=== PATIENT | female | born 1965 | race African-American/Black ===

== ENCOUNTER 2016-07-10 20:21 | Emergency (ER) | payer OTHER ==
[~2016-07-10 20:21] MED LIST: FLUT9.9S NS; HYDR-971 PO; METO50TA2 PO; VERA240C2 PO
--- NOTE | 2016-07-10 20:55 | ED.ADGEN ---
Past Medical History Past Medical History: GERD, Hypertension Past Surgical History: Tubal ligation, Other Additional Past Surgical Histo: (R) SHOULDER ROTA CUFF Alcohol Use: Occasionally Drug Use: None Adult General Chief Complaint Chief Complaint: ACCIDENTAL INGESTION HPI HPI Patient is a 50 year old woman, history of hypertension, GERD, who presents to the emergency department with a complaint of throat pain and concern for occult exposure. Patient states that she keeps a small bag of baking soda in the cabinet next to her and send sticks. She states that she began using the baking soda, small spoonful mixed with water, as she was experiencing a small amount of GI upset. She states she is not extrinsics RSI currently, she states however after she drank the baking soda she been expressing a burning sensation in her throat. She denies any pain previously. Denies any difficulty with swallowing or breathing, was concerned that "some of the chemicals from the incense may have gotten into the baking soda". As stated, the backs of both heels, and patient has been using baking soda in this [employer] incense for some time without any complications. She denies any preceding symptoms, any fevers or chills, any rhinorrhea, any other GI or complaints. Review of Systems Review of Systems Constitutional: Denies fever or chills. [] Eyes: Denies change in visual acuity. [] HENT: Denies nasal congestion, complaining of sore throat. Respiratory: Denies cough or shortness of breath. [] Cardiovascular: Denies chest pain or edema. [] GI: Denies abdominal pain, nausea, vomiting, bloody stools or diarrhea. [] : Denies dysuria. [] Musculoskeletal: Denies back pain or joint pain. [] Integument: Denies rash. [] Neurologic: Denies headache, focal weakness or sensory changes. [] Endocrine: Denies polyuria or polydipsia. [] Lymphatic: Denies swollen glands. [] Psychiatric: Denies depression or anxiety. [] Current Medications Current Medications Current Medications Medications (Trade) Dose Ordered Sig/Amairani Start Time Stop Time Status Last Admin Dose Admin Multi-Ingredient Mouthwash/Gargle (Gi Cocktail Single Dose) 15 ml 1X ONCE 07/10/16 21:00 07/10/16 21:01 DC 07/10/16 21:08 15 ML Ondansetron HCl (Zofran Odt) 4 mg 1X ONCE 07/10/16 21:15 07/10/16 21:18 DC 07/10/16 21:16 4 MG Allergies Allergies Allergies Coded Allergies Type Severity Reaction Last Updated Verified codeine Adverse Reaction Intermediate Nausea 10/14/13 Yes Physical Exam Physical Exam Constitutional: Well developed, well nourished, no acute distress, non-toxic appearance. [] HENT: Normocephalic, atraumatic, bilateral external ears normal, oropharynx mildly injected, no swelling of the tonsils or uvula, no tongue involvement, no oral exudates, nose normal. [] Eyes: PERRLA, EOMI, conjunctiva normal, no discharge. [] Neck: Normal range of motion, no tenderness, supple, no stridor. [] Cardiovascular:Heart rate regular rhythm, no murmur , S1, S2, rubs or gallops. [ ] Lungs & Thorax: Bilateral breath sounds clear to auscultation , no wheezing, rhonchi, rales. [] Abdomen: Bowel sounds normal, soft, no tenderness, no masses, no pulsatile masses. [] Skin: Warm, dry, no erythema, no rash. [] Back: No tenderness, no CVA tenderness. [] Extremities: No tenderness, no cyanosis, no clubbing, ROM intact, no edema. [] Neurologic: Alert and oriented X 3, normal motor function, normal sensory function, no focal deficits noted. [] Psychologic: Affect normal, judgement normal, mood normal. [] Current Patient Data Vital Signs Vital Signs Date Time Temp Pulse Resp B/P Pulse Ox O2 Delivery O2 Flow Rate FiO2 07/10/16 20:30 98.4 70 16 160/89 100 Room Air 98.4 EKG EKG Not indicated. [] Radiology/Procedures Radiology/Procedures Not indicated. [] Course & Med Decision Making Course & Med Decision Making Pertinent Labs and Imaging studies reviewed. (See chart for details) Patient with evidence of injection and irritation of the posterior pharynx, although patient denies feeling any symptoms before she drank baking soda, I believe that she may have had mild irritation in this area which was irritated when she ingested the baking soda and water mixture. No evidence of lesions, or correa, tongue and mucous membranes are normal, no swelling, patient received a strep swab which was negative. Per patient's report, she did not ingest a dangerous amount of baking soda, is denying any GI symptoms at this time, has no stridor, or evidence of other concerning finding on examination or history. Patient given a GI cocktail which she gargle, with improvement of her throat symptoms. On reevaluation, more than hour out from onset of symptoms, she states she is feeling much better, and as stated has no evidence of airway compromise or other concerning findings. Discussed with patient use of over-the- counter medications for her symptoms, concerning symptoms that would prompt return to the emergency department for additional evaluation. Patient voiced understanding and agreement with plan as stated, discharged home with family in stable condition. Dragon Disclaimer Dragon Disclaimer This electronic medical record was generated, in whole or in part, using a voice recognition dictation system. Departure Impression: Primary Impression: Throat pain in adult Disposition: 01 HOME, SELF-CARE Condition: IMPROVED OLGA PORTILLO DO Jul 10, 2016 20:55
[2016-07-10] MEDS ORDERED: LIDO:MAALOX:DONNATAL 1:1:1 15 ML SINGLE DOSE SWSW ONE (21:00)
[2016-07-10] MEDS ORDERED: ONDANSETRON ODT 4 MG TAB.RAPDIS PO ONE (21:15)
[2016-07-10 21:50] VITALS: BP 145/67
[2016-07-11 09:12] LABS: NEGATIVE OBC STREP NEG; POSITIVE OBC STREP POS
== END 2016-07-10 22:05 | disposition home or self-care (01) ==
LOC: ER 20:21
DX: R07.0 Pain in throat (principal); I10 Essential (primary) hypertension; K21.9 Gastro-esophageal reflux disease without esophagitis; Z88.5 Allergy status to narcotic agent; Z98.51 Tubal ligation status
CPT/HCPCS: 87070; 87880; 99284; Q0162

== ENCOUNTER → 2016-07-20 | Outpatient (CLI) | payer OTHER ==
[2016-07-10 21:50] VITALS: BP 145/67
[2016-07-20 11:03] LABS: ALBUMIN/GLOBULIN RATIO 0.9 (1.0-1.7); CALCIUM 9.4 mg/dL (8.5-10.1); CREATININE 0.8 mg/dL (0.6-1.0); GFR 91.5; TOTAL BILIRUBIN 0.5 mg/dL (0.2-1.0); TOTAL PROTEIN 8.5 g/dL (6.4-8.2)
[2016-07-20 11:04] LABS: CHOLESTEROL/HDL RATIO 2.8; POTASSIUM 4.1 mmol/L (3.5-5.1)
== END | disposition home or self-care (01) ==
LOC: LAB 10:15
PROVIDERS: ATTEND Family Medicine
DX: I10 Essential (primary) hypertension (principal)
CPT/HCPCS: 36415; 80053; 80061

== ENCOUNTER → 2016-11-15 | Outpatient (CLI) | payer OTHER ==
--- NOTE | 2016-11-16 16:50 | RAD ---
DATE: 11/15/2016 EXAM: MAMMO JESUS SCREENING BILATERAL HISTORY: Screening mammogram COMPARISON: 06/30/2015 screening mammogram. The breast parenchyma is heterogeneously dense, which could reduce sensitivity of mammography. Breast parenchyma level C. FINDINGS: Bilateral digital 2D and 3D tomosynthesis CC and MLO views. There is a 4 mm nodule in the lateral left breast which is not definitely seen on the MLO view 4 cm posterior to the nipple. No suspicious mass, calcification or architectural distortion in the right breast. IMPRESSION: 4 mm nodule in the lateral left breast only seen on the CC view. BI-RADS 0, needs additional imaging evaluation. BI-RADS CATEGORY: 0 INCOMPLETE: NEEDS ADDITIONAL IMAGING EVALUATION AND/OR PRIOR MAMMOGRAMS FOR COMPARISON. RECOMMENDED FOLLOW-UP: ADD ADDITIONAL IMAGING Mammography is a sensitive method for finding small breast cancers, but it does not detect them all and is not a substitute for careful clinical examination. A negative mammogram does not negate a clinically suspicious finding and should not result in delay in biopsying a clinically suspicious abnormality. "Our facility is accredited by the [employer] Mammography Program."
== END | disposition home or self-care (01) ==
LOC: KCIC MAMMO 14:42
PROVIDERS: ATTEND Family Medicine
DX: Z12.31 Encounter for screening mammogram for malignant neoplasm of breast (principal)
CPT/HCPCS: 77063; G0202; 77067

== ENCOUNTER → 2016-11-17 | Outpatient (CLI) | payer OTHER ==
--- NOTE | 2016-11-17 16:01 | RAD ---
DATE: 11/17/2016 EXAM: DIGITAL DIAGNOSTIC LT, BREAST LEFT HISTORY: Suspicious screening study COMPARISON: 11/15/2016 The breast parenchyma is heterogeneously dense, which could reduce the sensitivity of mammography. Breast parenchyma level C. FINDINGS: Additional spot compression and straight mediolateral views of the left breast were obtained and correlated with the screening images. The CC spot compression view confirms the presence of a 4 mm nodule in the anterolateral aspect left breast. It is not clearly seen on the current oblique or straight mediolateral views. It is best demonstrated on CC tomographic image 27 of the screening study. The tomograms suggest that it lies at the 3-4:00 location. It is triangular shaped with predominantly smooth margins. Left breast ultrasound, 11/17/2016: A targeted ultrasound exam of the left breast was obtained from the 12:00 to 4:00 locations. Heterogeneous fibroglandular shadows are present. No cystic or solid breast mass is seen. IMPRESSION: Small left lateral breast nodule for which no sonographic correlate could be found. Breast MRI should be considered for further evaluation. Close mammographic follow-up would be a reasonable alternative. BI-RADS CATEGORY: 0 INCOMPLETE: NEEDS ADDITIONAL IMAGING EVALUATION AND/OR PRIOR MAMMOGRAMS FOR COMPARISON. RECOMMENDED FOLLOW-UP: ADD ADDITIONAL IMAGING PQRS compliance statement: Patient information was entered into a reminder system with a target due date for the next mammogram. Mammography is a sensitive method for finding small breast cancers, but it does not detect them all and is not a substitute for careful clinical examination. A negative mammogram does not negate a clinically suspicious finding and should not result in delay in biopsying a clinically suspicious abnormality. "Our facility is accredited by the [employer] Mammography Program."
== END | disposition home or self-care (01) ==
LOC: KCIC MAMMO 14:30
PROVIDERS: ATTEND Family Medicine
DX: N63 Unspecified lump in breast (principal)
CPT/HCPCS: 76641; G0206; 77065

== ENCOUNTER → 2017-05-04 | Outpatient (CLI) | payer OTHER ==
[2017-05-04 09:26] LABS: ALBUMIN 4.1 g/dL (3.4-5.0); ALBUMIN/GLOBULIN RATIO 0.9 (1.0-1.7); ALK PHOS 83 U/L (46-116); ALT (SGPT) 33 U/L (14-59); ANION GAP 10 (6-14); AST (SGOT) 22 U/L (15-37); BLOOD UREA NITROGEN 16 mg/dL (7-20); BUN/CREATININE RATIO 20 (6-20); CALCIUM 8.8 mg/dL (8.5-10.1); CARBON DIOXIDE 29 mmol/L (21-32); CHLORIDE 102 mmol/L (98-107); CHOLESTEROL 182 mg/dL (0-200); CREATININE 0.8 mg/dL (0.6-1.0); GFR 91.1; GLUCOSE 92 mg/dL (70-99); HDLC 63 mg/dL (40-60); LDLC 99 mg/dL (0-100); NON-HDL CHOLESTEROL 119 mg/dL (0-129); POTASSIUM 4.1 mmol/L (3.5-5.1); SODIUM 141 mmol/L (136-145); TOTAL BILIRUBIN 0.4 mg/dL (0.2-1.0); TOTAL PROTEIN 8.6 g/dL (6.4-8.2); TRIGLYCERIDES 99 mg/dL (0-150); VLDLC 20 mg/dL (0-40)
[2017-05-04 09:28] LABS: CHOLESTEROL/HDL RATIO 2.9
== END | disposition home or self-care (01) ==
LOC: LAB 08:49
DX: I10 Essential (primary) hypertension (principal); Z78.0 Asymptomatic menopausal state
CPT/HCPCS: 36415; 80053; 80061; 82306

== ENCOUNTER → 2017-06-29 | Outpatient (CLI) | payer OTHER | END | disposition home or self-care (01) | LOC: KCIC MAMMO 13:46 | DX: N63.20 Unspecified lump in the left breast, unspecified quadrant (principal) | CPT/HCPCS: 77065; G0279 ==

== ENCOUNTER → 2017-08-08 | Outpatient (CLI) | payer OTHER | END | disposition home or self-care (01) | LOC: KCIC MRI 15:39 | DX: M94.212 Chondromalacia, left shoulder (principal); M12.812 Other specific arthropathies, not elsewhere classified, left shoulder; I10 Essential (primary) hypertension | CPT/HCPCS: 73221 ==

== ENCOUNTER 2017-12-29 14:37 | Emergency (ER) | payer OTHER ==
[~2017-12-29] VITALS: Ht 170.2 cm; Wt 96.6 kg
[~2017-12-29 14:37] MED LIST changes: -METO50TA2 PO; +METO50TA6 PO
[2017-12-29 14:43] VITALS: BP 154/70
[2017-12-29] MEDS ORDERED: ACETAMINOPHEN 500 MG TABLET PO ONE (15:00)
[2017-12-29] MEDS ORDERED: MUPI22OI2 TP (15:03)
--- NOTE | 2017-12-29 15:04 | PHYS DOC ---
Past Medical History Past Medical History: GERD, Hypertension Past Surgical History: Tubal ligation, Other Additional Past Surgical Histo: (R) SHOULDER ROTA CUFF Alcohol Use: Occasionally Drug Use: None Adult General Chief Complaint Chief Complaint: INSECT BITE HPI HPI Patient is a 52 year old female who presents with an infected mosquito bite that occurred a few days ago. The patient has been using peroxide and alcohol on the bite. She states that it is not healing. There is a small area of pus in the center of the bite. She states that she has also had some intermittent headaches as well. She denies changes in vision, gait changes, fever, nausea or vomiting. Review of Systems Review of Systems Constitutional: Denies fever or chills [] Eyes: Denies change in visual acuity, redness, or eye pain [] HENT: Denies nasal congestion or sore throat [] Respiratory: Denies cough or shortness of breath [] Cardiovascular: No additional information not addressed in HPI [] GI: Denies abdominal pain, nausea, vomiting, bloody stools or diarrhea [] : Denies dysuria or hematuria [] Musculoskeletal: Denies back pain or joint pain [] Integument: See history of present illness Neurologic: See history of present illness Endocrine: Denies polyuria or polydipsia [] All other systems were reviewed and found to be within normal limits, except as documented in this note. Current Medications Current Medications Current Medications Medications (Trade) Dose Ordered Sig/[facility] Start Time Stop Time Status Last Admin Dose Admin Acetaminophen (Tylenol) 1,000 mg 1X ONCE 12/29/17 15:00 12/29/17 15:01 Allergies Allergies Allergies Coded Allergies Type Severity Reaction Last Updated Verified codeine Adverse Reaction Intermediate Nausea 10/14/13 Yes Physical Exam Physical Exam Constitutional: Well developed, well nourished, no acute distress, non-toxic appearance. [] HENT: Normocephalic, atraumatic, bilateral external ears normal, oropharynx moist, no oral exudates, nose normal. [] Eyes: PERRLA, EOMI, conjunctiva normal, no discharge. [] Neck: Normal range of motion, no tenderness, supple, no stridor. [] Cardiovascular:Heart rate regular rhythm, no murmur [] Lungs & Thorax: Bilateral breath sounds clear to auscultation [] Abdomen: Bowel sounds normal, soft, no tenderness, no masses, no pulsatile masses. [] Skin: 0.5 cm papule with a purulent center, no induration or fluctuance noted Back: No tenderness, no CVA tenderness. [] Extremities: No tenderness, no cyanosis, no clubbing, ROM intact, no edema. [] Neurologic: Alert and oriented X 3, normal motor function, normal sensory function, no focal deficits noted, cranial nerves II through XII are grossly intact. [] Psychologic: Affect normal, judgement normal, mood normal. [] Current Patient Data Vital Signs Vital Signs Date Time Temp Pulse Resp B/P (MAP) Pulse Ox O2 Delivery O2 Flow Rate FiO2 12/29/17 14:39 97.9 60 18 154/70 (98) 97 Room Air 97.9 EKG EKG [] Radiology/Procedures Radiology/Procedures [] Course & Med Decision Making Course & Med Decision Making Pertinent Labs and Imaging studies reviewed. (See chart for details) []The patient was given a dose of Tylenol in the emergency department for her headache. Dragon Disclaimer Dragon Disclaimer This electronic medical record was generated, in whole or in part, using a voice recognition dictation system. Departure Departure Impression: Primary Impression: Skin infection Additional Impression: Headache Disposition: HOME, SELF-CARE Condition: STABLE Referrals: RANJIT BLOOM MD (PCP) Patient Instructions: General Headache Without Cause, Skin Infections Additional Instructions: Take the medication as prescribed. You may use ibuprofen or Tylenol for headache. Follow-up with your primary care provider in 3 days if not improving or return to the emergency department if worsening. Scripts Mupirocin (MUPIROCIN OINTMENT) 22 Gm Oint...g. 1 SHIV TP TID for WOUND CARE, #1 TUBE Prov: LYRIC NIELSEN APRN 12/29/17 Problem Qualifiers LYRIC NIELSEN APRN Dec 29, 2017 15:04
== END 2017-12-29 15:16 | disposition home or self-care (01) ==
LOC: ER 14:37
DX: L08.89 Other specified local infections of the skin and subcutaneous tissue (principal); S50.862A Insect bite (nonvenomous) of left forearm, initial encounter; I10 Essential (primary) hypertension; K21.9 Gastro-esophageal reflux disease without esophagitis; W57.XXXA Bitten or stung by nonvenomous insect and other nonvenomous arthropods, initial encounter; Y93.89 Activity, other specified; Y92.89 Other specified places as the place of occurrence of the external cause; Y99.8 Other external cause status
CPT/HCPCS: 99283

== ENCOUNTER → 2018-01-05 | Day surgery (SDC) | payer OTHER ==
[~2018-01-05] MED LIST changes: +ASPI-630 PO; +ESCITALOPRAM OXA5 M1 PO; +IV RINGERS,LACTATED 1000ML 1,000 ML IV SCH; +LIDOCAINE 2% PF 2ML VIAL. ONE; +MUPI22OI2 TP; +PROPOFOL 20 ML IV ONE
[2018-01-05 08:35] VITALS: BP 118/61
== END | disposition home or self-care (01) ==
LOC: ENDOS 06:50
PROVIDERS: ATTEND Internal Medicine Gastroenterology
DX: Z12.11 Encounter for screening for malignant neoplasm of colon (principal); K64.0 First degree hemorrhoids; Z88.5 Allergy status to narcotic agent; F41.9 Anxiety disorder, unspecified; M19.90 Unspecified osteoarthritis, unspecified site; K21.9 Gastro-esophageal reflux disease without esophagitis; I10 Essential (primary) hypertension; Z82.49 Family history of ischemic heart disease and other diseases of the circulatory system; Z72.89 Other problems related to lifestyle
CPT/HCPCS: 45378; J2001; J2704

== ENCOUNTER → 2018-01-15 | Outpatient (CLI) | payer OTHER ==
[2018-01-05 08:35] VITALS: BP 118/61
[~2018-01-15] MED LIST changes: -IV RINGERS,LACTATED 1000ML 1,000 ML IV SCH; -LIDOCAINE 2% PF 2ML VIAL. ONE; -PROPOFOL 20 ML IV ONE
--- NOTE | 2018-01-15 17:24 | KCIC ---
Bilateral digital screening mammograms with 3D Tomosynthesis: Reason for examination: Routine screening. Comparison is made to previous studies dated back to 06/30/2015. Bilateral mammograms in CC and oblique projections were obtained with 2-D imaging and 3-D tomosynthesis imaging on a Siemens Inspiration unit and reviewed on the workstation. Interpretation was made with the benefit of CAD. The skin and nipples show no abnormalities. No abnormal axillary lymph nodes are seen. The breast parenchyma is extremely dense. (Breast density: Category D.) There is a 5.3 mm circumscribed nodule present at approximately the 6:30 B position of the left breast on tomographic images. This may represent a cyst. Further evaluation with ultrasound is recommended. There are no other dominant masses, suspicious calcifications or architectural distortion evident. Impression: Small 5.3 mm circumscribed nodule possibly representing a cyst seen on tomographic images at approximately the 6:30 B position of the left breast. Recommend further evaluation with ultrasound. Your patient's mammogram demonstrates that she has dense breast tissue (breast density category C or D), which could hide abnormalities, and if she has other risk factors for breast cancer that have been identified, she might benefit from supplemental screening tests that may be suggested by you as her ordering physician. Dense breast tissue, in and of itself, is a relatively common condition. Therefore, this information is not provided to cause undue concern, but rather to raise your awareness and to promote discussion with your patient regarding the presence of other risk factors, in addition to dense breast tissue. Your patient's mammography results will be sent to her. BI-RAD Category 0: Incomplete. Needs additional imaging evaluation. "Our facility is accredited by the [employer] Mammography [employer]." This patient's information has been entered into a reminder system for the patient to be notified with the results of her examination and a target date for the next mammogram. Electronically signed by: Emily Shields MD (01/15/2018 5:20 PM) [id number]
== END | disposition home or self-care (01) ==
LOC: KCIC MAMMO 13:01
PROVIDERS: ATTEND Family Medicine
DX: R92.8 Other abnormal and inconclusive findings on diagnostic imaging of breast (principal); E55.9 Vitamin D deficiency, unspecified; K21.9 Gastro-esophageal reflux disease without esophagitis; Z82.49 Family history of ischemic heart disease and other diseases of the circulatory system
CPT/HCPCS: 77066; G0279; 77062

== ENCOUNTER → 2018-06-05 | Outpatient (CLI) | payer OTHER ==
[2018-01-05 08:35] VITALS: BP 118/61
[~2018-06-05] MED LIST changes: +HYDR-3164 PO; -HYDR-971 PO
[2018-06-05 11:32] LABS: CREATININE 0.7 mg/dL (0.6-1.0); GFR 105.9; POTASSIUM 4.1 mmol/L (3.5-5.1)
[2018-06-05 23:14] LABS: HEMOGLOBIN A1C 5.8 % (4.8-5.6)
== END | disposition home or self-care (01) ==
LOC: LAB 10:42
PROVIDERS: ATTEND Family Medicine
DX: R73.9 Hyperglycemia, unspecified (principal)
CPT/HCPCS: 36415; 80048; 83036

== ENCOUNTER 2018-06-13 12:38 | Emergency (ER) | payer OTHER ==
[~2018-06-13] VITALS: Ht 170.2 cm; Wt 96.6 kg
[2018-06-13 12:44] VITALS: BP 147/66
[2018-06-13] MEDS ORDERED: IBUPROFEN 200 MG TABLET. PO ONE (13:15)
--- NOTE | 2018-06-13 17:50 | PHYS DOC ---
Past Medical History Past Medical History: GERD, Hypertension Past Surgical History: Tubal ligation, Other Additional Past Surgical Histo: (R) SHOULDER ROTA CUFF Alcohol Use: Occasionally Drug Use: None Adult General Chief Complaint Chief Complaint: MECHANICAL FALL HPI HPI 52-year-old female presents to the emergency department today after she slipped and fell on ice and hit her head. She did not lose consciousness. She does report a headache and she took Tylenol helped some but did not completely alleviate the symptoms. She denies any nausea or vomiting. She was told by her work she needed to come in and get checked. She denies any lateralizing neurologic weakness. She was ambulatory right after her fall.[] Review of Systems Review of Systems Constitutional: Denies fever or chills [] Eyes: Denies change in visual acuity, redness, or eye pain [] HENT: Denies nasal congestion or sore throat [] Respiratory: Denies cough or shortness of breath [] Cardiovascular: No additional information not addressed in HPI [] GI: Denies abdominal pain, nausea, vomiting, bloody stools or diarrhea [] : Denies dysuria or hematuria [] Musculoskeletal: Denies back pain or joint pain [] Integument: Denies rash or skin lesions [] Neurologic: Per history of present illness[] Endocrine: Denies polyuria or polydipsia [] All other systems were reviewed and found to be within normal limits, except as documented in this note. Current Medications Current Medications Current Medications Medications (Trade) Dose Ordered Sig/Amairani Start Time Stop Time Status Last Admin Dose Admin Ibuprofen (Motrin) 600 mg 1X ONCE 06/13/18 13:15 06/13/18 13:16 DC Allergies Allergies Allergies Coded Allergies Type Severity Reaction Last Updated Verified codeine Adverse Reaction Intermediate Nausea 01/05/18 Yes Physical Exam Physical Exam Constitutional: Well developed, well nourished, mild distress, non-toxic appearance. [] HENT: Small tender area in the central occipital area there is no laceration no hematoma, atraumatic, bilateral external ears normal, oropharynx moist, no oral exudates, nose normal. [] Eyes: PERRLA, EOMI, conjunctiva normal, no discharge. [] Neck: Normal range of motion, no tenderness, supple, no stridor. [] Cardiovascular:Heart rate regular rhythm, no murmur [] Lungs & Thorax: Bilateral breath sounds clear to auscultation [] Abdomen: Bowel sounds normal, soft, no tenderness, no masses, no pulsatile masses. [] Skin: Warm, dry, no erythema, no rash. [] Back: No tenderness, no CVA tenderness. [] Extremities: No tenderness, no cyanosis, no clubbing, ROM intact, no edema. [] Neurologic: Alert and oriented X 3, normal motor function, normal sensory function, no focal deficits noted. [] Psychologic: Affect normal, judgement normal, mood normal. [] Current Patient Data Vital Signs Vital Signs Date Time Temp Pulse Resp B/P (MAP) Pulse Ox O2 Delivery O2 Flow Rate FiO2 06/13/18 12:44 98.4 67 18 147/66 (93) 97 Room Air 98.4 EKG EKG [] Radiology/Procedures Radiology/Procedures [] Course & Med Decision Making Course & Med Decision Making Pertinent Labs and Imaging studies reviewed. (See chart for details) [] Dragon Disclaimer Dragon Disclaimer This electronic medical record was generated, in whole or in part, using a voice recognition dictation system. Departure Departure Impression: Primary Impression: Head contusion Disposition: 01 HOME, SELF-CARE Condition: STABLE Patient Instructions: Head Injury, Adult Problem Qualifiers Primary Impression: Head contusion Encounter type: initial encounter Contusion of head detail: scalp Qualified Codes: S00.03XA - Contusion of scalp, initial encounter WEN CHEN DO Jun 13, 2018 17:50
== END 2018-06-13 13:17 | disposition home or self-care (01) ==
LOC: ER 12:38
DX: S00.03XA Contusion of scalp, initial encounter (principal); I10 Essential (primary) hypertension; K21.9 Gastro-esophageal reflux disease without esophagitis; Z88.5 Allergy status to narcotic agent; W00.2XXA Other fall from one level to another due to ice and snow, initial encounter; Y93.89 Activity, other specified; Y92.89 Other specified places as the place of occurrence of the external cause; Y99.8 Other external cause status
CPT/HCPCS: 99282

== ENCOUNTER → 2019-02-08 | Outpatient (CLI) | payer OTHER ==
--- NOTE | 2019-02-11 13:01 | KCIC ---
Bilateral digital screening mammograms with 3-D tomosynthesis: Reason for examination: Routine screening. Comparison is made to previous studies dated 01/15/2018 and 11/15/2016. Bilateral mammograms in CC and oblique projections were obtained with 2-D imaging and 3-D tomosynthesis imaging on a Siemens Inspiration unit and reviewed on the workstation. Interpretation was made with the benefit of CAD. The skin and nipples show no abnormalities. No abnormal axillary lymph nodes are seen. The breast parenchyma is extremely dense. (Breast density: Category D.) There are no dominant masses, suspicious calcifications or architectural distortion. Benign calcifications are present. Impression: No evidence of malignancy. Recommend routine screening. Your patient's mammogram demonstrates that she has dense breast tissue (breast density category C or D), which could hide abnormalities, and if she has other risk factors for breast cancer that have been identified, she might benefit from supplemental screening tests that may be suggested by you as her ordering physician. Dense breast tissue, in and of itself, is a relatively common condition. Therefore, this information is not provided to cause undue concern, but rather to raise your awareness and to promote discussion with your patient regarding the presence of other risk factors, in addition to dense breast tissue. Your patient's mammography results will be sent to her. BI-RAD Category 2: Benign. "Our facility is accredited by the [employer] Mammography Program." This patient's information has been entered into a reminder system for the patient to be notified with the results of her examination and a target date for the next mammogram. ANGEL
== END | disposition home or self-care (01) ==
LOC: KCIC MAMMO 12:30
PROVIDERS: ATTEND Family Medicine
DX: Z12.31 Encounter for screening mammogram for malignant neoplasm of breast (principal); N64.89 Other specified disorders of breast
CPT/HCPCS: 77063; 77067

== ENCOUNTER 2019-03-03 18:52 | Emergency (ER) | payer OTHER ==
[~2019-03-03] VITALS: Ht 167.6 cm; Wt 96.6 kg
--- NOTE | 2019-03-03 19:12 | PHYS DOC ---
Past Medical History Past Medical History: GERD, Hypertension Past Surgical History: Tubal ligation, Other Additional Past Surgical Histo: (R) SHOULDER ROTA CUFF Alcohol Use: Occasionally Drug Use: None Adult General Chief Complaint Chief Complaint: ABDOMINAL PAIN HPI HPI Patient is a 53 year old female presents with epigastric/right upper quadrant pain radiating to right shoulder blade. It is described as dull, aching and is intermittent lasting for minutes to hours at a time. It is worse after eating certain foods. Pain began this evening after eating a peanut butter sandwich. Patient taken Pepto-Bismol and Rolaids without relief. States states pain is more intense it isn't different location than her typical heartburn. No nausea vomiting, bloody stools or dark tarry stools. No other acute symptoms or complaints. No prior abdominal surgeries. [] Review of Systems Review of Systems Review of symptoms as per history of present illness. All other review symptoms are negative. All other systems were reviewed and found to be within normal limits, except as documented in this note. Current Medications Current Medications Current Medications Medications (Trade) Dose Ordered Sig/Amairani Start Time Stop Time Status Last Admin Dose Admin Famotidine (Pepcid Vial) 20 mg 1X ONCE 03/03/19 19:15 03/03/19 19:16 DC 03/03/19 19:52 20 MG Morphine Sulfate (Morphine Sulfate) 4 mg 1X ONCE 03/03/19 19:45 03/03/19 19:46 DC 03/03/19 19:53 4 MG Multi-Ingredient Mouthwash/Gargle (Gi Cocktail) 20 ml 1X ONCE 03/03/19 22:00 03/03/19 22:01 DC 03/03/19 22:04 20 ML Ondansetron HCl (Zofran) 4 mg 1X ONCE 03/03/19 19:45 03/03/19 19:46 DC 03/03/19 19:53 4 MG Allergies Allergies Allergies Coded Allergies Type Severity Reaction Last Updated Verified codeine Adverse Reaction Intermediate Nausea 01/05/18 Yes Physical Exam Physical Exam Constitutional: Well developed, well nourished, no acute distress, non-toxic appearance. [] HENT: Normocephalic, atraumatic, bilateral external ears normal, oropharynx moist, no oral exudates, nose normal. [] Eyes: PERRLA, EOMI, conjunctiva normal, no discharge. [] Neck: Normal range of motion, no tenderness, supple, no stridor. [] Cardiovascular:Heart rate regular rhythm, no murmur [] Lungs & Thorax: Bilateral breath sounds clear to auscultation [] Abdomen: Bowel sounds normal, soft, no tenderness, no masses, no pulsatile masses. [] Skin: Warm, dry, no erythema, no rash. [] Back: No tenderness, no CVA tenderness. [] Extremities: No tenderness, no cyanosis, no clubbing, ROM intact, no edema. [] Neurologic: Alert and oriented X 3, normal motor function, normal sensory function, no focal deficits noted. [] Psychologic: Affect normal, judgement normal, mood normal. [] Current Patient Data Vital Signs Vital Signs Date Time Temp Pulse Resp B/P (MAP) Pulse Ox O2 Delivery O2 Flow Rate FiO2 03/03/19 19:53 20 97 Room Air 03/03/19 19:14 98.1 90 201/96 (131) 98.1 Lab Values Laboratory Tests Test 03/03/19 19:15 03/03/19 20:25 03/03/19 20:30 White Blood Count 7.3 x10^3/uL (4.0-11.0) Red Blood Count 4.48 x10^6/uL (3.50-5.40) Hemoglobin 12.6 g/dL (12.0-15.5) Hematocrit 38.6 % (36.0-47.0) Mean Corpuscular Volume 86 fL (79-100) Mean Corpuscular Hemoglobin 28 pg (25-35) Mean Corpuscular Hemoglobin Concent 33 g/dL (31-37) Red Cell Distribution Width 14.1 % (11.5-14.5) Platelet Count 265 x10^3/uL (140-400) Neutrophils (%) (Auto) 43 % (31-73) Lymphocytes (%) (Auto) 47 % (24-48) Monocytes (%) (Auto) 8 % (0-9) Eosinophils (%) (Auto) 2 % (0-3) Basophils (%) (Auto) 0 % (0-3) Neutrophils # (Auto) 3.2 x10^3/uL (1.8-7.7) Lymphocytes # (Auto) 3.4 x10^3/uL (1.0-4.8) Monocytes # (Auto) 0.6 x10^3/uL (0.0-1.1) Eosinophils # (Auto) 0.1 x10^3/uL (0.0-0.7) Basophils # (Auto) 0.0 x10^3/uL (0.0-0.2) Sodium Level 142 mmol/L (136-145) Potassium Level 3.9 mmol/L (3.5-5.1) Chloride Level 104 mmol/L (98-107) Carbon Dioxide Level 30 mmol/L (21-32) Anion Gap 8 (6-14) Blood Urea Nitrogen 11 mg/dL (7-20) Creatinine 0.8 mg/dL (0.6-1.0) Estimated GFR (Cockcroft-Gault) 90.4 BUN/Creatinine Ratio 14 (6-20) Glucose Level 96 mg/dL (70-99) Calcium Level 9.1 mg/dL (8.5-10.1) Total Bilirubin 0.4 mg/dL (0.2-1.0) Aspartate Amino Transferase (AST) 47 U/L (15-37) H Alanine Aminotransferase (ALT) 29 U/L (14-59) Alkaline Phosphatase 97 U/L (46-116) Total Protein 8.7 g/dL (6.4-8.2) H Albumin 4.1 g/dL (3.4-5.0) Albumin/Globulin Ratio 0.9 (1.0-1.7) L Lipase 172 U/L (73-393) Serum Test, Qualitative Negative (NEG) Urine Collection Type Unknown Urine Color Yellow Urine Clarity Clear Urine pH 6.0 Urine Specific [place] 1.015 Urine Protein Negative mg/dL (NEG-TRACE) Urine Glucose (UA) Negative mg/dL (NEG) Urine Ketones (Stick) Negative mg/dL (NEG) Urine Blood Negative (NEG) Urine Nitrite Negative (NEG) Urine Bilirubin Negative (NEG) Urine Urobilinogen Dipstick 0.2 mg/dL (0.2 mg/dL) Urine Leukocyte Esterase Small (NEG) Urine RBC Occ /HPF (0-2) Urine WBC 1-4 /HPF (0-4) Urine Squamous Epithelial Cells Mod /LPF Urine Bacteria Many /HPF (0-FEW) Urine Mucus Marked /LPF POC Urine HCG, Qualitative Hcg negative (Negative) Laboratory Tests 03/03/19 19:15 Laboratory Tests 03/03/19 19:15 EKG EKG [] Radiology/Procedures Radiology/Procedures [Gallbladder ultrasound: Normal gallbladder etiology report] Course & Med Decision Making Course & Med Decision Making Pertinent Labs and Imaging studies reviewed. (See chart for details) [No relief with Pepcid. Symptoms improved with morphine and then returned. Pain completely resolved with GI cocktail. Lab, ultrasound reviewed. No acute findings. Abdomen remains soft, nonsurgical. Will treat supportively with PCP follow-up. Return precautions reviewed. ] Dragon Disclaimer Dragon Disclaimer This electronic medical record was generated, in whole or in part, using a voice recognition dictation system. Departure Departure Impression: Primary Impression: Gastritis and duodenitis Disposition: HOME, SELF-CARE Condition: IMPROVED Referrals: RANJIT BLOOM MD (PCP) Patient Instructions: Gastritis, Adult, [id number] Additional Instructions: Please avoid all NSAIDs, spicy foods, alcohol, caffeine and eating 3 hours prior to bedtime. Take newly prescribed medications as directed and follow-up with your PCP in 5-7 days for reevaluation. Return to the ED if new or worsening symptoms. Scripts Sucralfate (CARAFATE) 1 Gm Tablet 1 TAB PO QID for 30 Days, #40 TAB 0 Refills Prov: KATY ADAM DO 03/03/19 Famotidine (PEPCID) 20 Mg Tablet 20 MG PO BID, #30 TAB Prov: KATY ADAM DO 03/03/19 Omeprazole (OMEPRAZOLE) 40 Mg Capsule. 1 CAP PO DAILY, #30 CAP 0 Refills Prov: KATY ADAM DO 03/03/19 AKTY ADAM DO Mar 03, 2019 19:12
[2019-03-03] MEDS ORDERED: FAMOTIDINE 20 MG/2 ML VIAL IVP ONE (19:15)
[2019-03-03 19:25] LABS: BASO % 0 % (0-3); EOS # 0.1 x10^3/uL (0.0-0.7); EOS % 2 % (0-3); HEMATOCRIT 38.6 % (36.0-47.0); HEMOGLOBIN 12.6 g/dL (12.0-15.5); LYMPH # 3.4 x10^3/uL (1.0-4.8); LYMPH % 47 % (24-48); MEAN CORPUSCULAR HEMOGLOBIN 28 pg (25-35); MEAN CORPUSCULAR HGB CONC 33 g/dL (31-37); MEAN CORPUSCULAR VOLUME 86 fL (79-100); MONO # 0.6 x10^3/uL (0.0-1.1); MONO % 8 % (0-9); NEUT # 3.2 x10^3/uL (1.8-7.7); NEUT % 43 % (31-73); PLATELET COUNT 265 x10^3/uL (140-400); RED BLOOD COUNT 4.48 x10^6/uL (3.50-5.40); RED CELL DISTRIBUTION WIDTH 14.1 % (11.5-14.5); WHITE BLOOD COUNT 7.3 x10^3/uL (4.0-11.0)
[2019-03-03 19:36] LABS: CALCIUM 9.1 mg/dL (8.5-10.1); CREATININE 0.8 mg/dL (0.6-1.0); GFR 90.4; POTASSIUM 3.9 mmol/L (3.5-5.1)
[2019-03-03 19:41] LABS: PREG TEST PT QUAL NEGATIVE (NEG)
[2019-03-03 19:42] LABS: ALBUMIN 4.1 g/dL (3.4-5.0); ALBUMIN/GLOBULIN RATIO 0.9 (1.0-1.7); TOTAL BILIRUBIN 0.4 mg/dL (0.2-1.0); TOTAL PROTEIN 8.7 g/dL (6.4-8.2)
[2019-03-03] MEDS ORDERED: ONDANSETRON PF 4 MG/2 ML VIAL. IVP ONE (19:45)
[2019-03-03] MEDS ORDERED: MORPHINE SULFATE 4 MG/ML VIAL. IV ONE (19:45)
[2019-03-03 20:40] LABS: BILIRUBIN,URINE NEGATIVE (NEG); CLARITY,URINE CLEAR; COLOR,URINE YELLOW; NITRITE,URINE NEGATIVE (NEG); PROTEIN,URINE NEGATIVE (NEG-TRACE); UROBILINOGEN,URINE 0.2 mg/dL (0.2 mg/dL)
[2019-03-03 20:46] LABS: BACTERIA,URINE MANY /HPF (0-FEW); RBC,URINE OCC /HPF (0-2); SQUAMOUS EPITHELIAL CELL,UR MOD /LPF
[2019-03-03] MEDS ORDERED: LIDO:MAALOX 1:1 20 ML SINGLE DOSE. SWSW ONE (22:00)
--- NOTE | 2019-03-03 22:02 | RAD ---
Right upper quadrant abdominal ultrasound History: Right upper quadrant pain. Comparison: None. Technique: Transabdominal ultrasound images are obtained. Findings: Visualized pancreas is unremarkable. Liver is normal in echogenicity. There is no decreased through-transmission. Right hepatic lobe measures 19.3 cm. Portal flow is hepatopedal. Gallbladder has an unremarkable appearance. Common bile duct caliber is normal measuring 3 mm in diameter. The right kidney measures 11.5 cm in length and is without evidence of obstruction or stone. IVC is unremarkable. IMPRESSION: 1. Gallbladder is normal. 2. Hepatomegaly. Electronically signed by: Gabino Alexandra MD (03/03/2019 9:59 PM) [facility]
[2019-03-03] MEDS ORDERED: OMEP40CA45 PO (22:28)
[2019-03-03] MEDS ORDERED: SUCR1TAB35 PO (22:28)
[2019-03-03] MEDS ORDERED: FAMO-63 PO (22:28)
[2019-03-03 22:35] VITALS: BP 170/65
== END 2019-03-03 22:42 | disposition home or self-care (01) ==
LOC: ER 18:52
DX: K29.70 Gastritis, unspecified, without bleeding (principal); K29.80 Duodenitis without bleeding; K21.9 Gastro-esophageal reflux disease without esophagitis; I10 Essential (primary) hypertension; Z98.51 Tubal ligation status; Z88.5 Allergy status to narcotic agent
CPT/HCPCS: 36415; 76705; 80053; 81001; 81025; 83690; 84703; 85025; 87086; 96374; 96375; 99285; J2270; J2405; J3490

== ENCOUNTER 2019-05-25 08:50 | Emergency (ER) | payer OTHER ==
[~2019-05-25] VITALS: Ht 170.2 cm; Wt 98.6 kg
[~2019-05-25 08:50] MED LIST changes: +FAMO-63 PO; +OMEP40CA45 PO; +SUCR1TAB35 PO
--- NOTE | 2019-05-25 09:23 | PHYS DOC ---
Past Medical History Past Medical History: GERD, Hypertension Past Surgical History: Tubal ligation, Other Additional Past Surgical Histo: (R) SHOULDER ROTA CUFF Smoking Status: Never Smoker Alcohol Use: Occasionally Drug Use: None Adult General Chief Complaint Chief Complaint: BLOODY STOOL HPI HPI Patient is a 53 year old female who presents with abdominal cramping, hot and cold chills, nausea, vomiting, diarrhea, blood in her stools that she describes as dull red that started last night around 11:30. This woke her up out of her sleep. She states she's had multiple bouts of diarrhea. She describes the pain as being mostly in the left lower area of her abdomen, but is all over her abdomen. The pain is 6 out of 10 in severity and crampy in nature. Denies any additional symptoms. She states that she ate at [employer] last night. Complete ROS were reviewed and found to be within normal limits, except as documented in the HPI Current Medications Current Medications Current Medications Medications (Trade) Dose Ordered Sig/Amairani Start Time Stop Time Status Last Admin Dose Admin Dicyclomine HCl (Bentyl) 10 mg 1X ONCE 05/25/19 09:30 05/25/19 09:31 DC 05/25/19 10:02 10 MG Info (CONTRAST GIVEN -- Rx MONITORING) 1 each PRN DAILY PRN 05/25/19 10:00 05/27/19 09:59 Iohexol (Omnipaque 300 Mg/ml) 75 ml 1X ONCE 05/25/19 10:00 05/25/19 10:01 DC 05/25/19 10:18 75 ML Ondansetron HCl (Zofran) 4 mg 1X ONCE 05/25/19 09:30 05/25/19 09:31 DC 05/25/19 10:02 4 MG Sodium Chloride 1,000 ml @ 1,000 mls/hr 1X ONCE 05/25/19 09:30 05/25/19 10:29 DC 05/25/19 10:02 1,000 MLS/HR Allergies Allergies Allergies Coded Allergies Type Severity Reaction Last Updated Verified codeine Adverse Reaction Intermediate Nausea 01/05/18 Yes Physical Exam Physical Exam Constitutional: Well developed, well nourished, no acute distress, non-toxic appearance. [] HENT: Normocephalic, atraumatic, bilateral external ears normal, oropharynx moist, no oral exudates, nose normal. [] Eyes: PERRLA, EOMI, conjunctiva normal, no discharge. [] Neck: Normal range of motion, no tenderness, supple, no stridor. [] Cardiovascular:Heart rate regular rhythm, no murmur [] Lungs & Thorax: Bilateral breath sounds clear to auscultation [] Abdomen: Bowel sounds normal, soft, mild LLQ pain on palpation, no masses, no pulsatile masses. [] Skin: Warm, dry, no erythema, no rash. [] Neurologic: Alert and oriented X 3, normal motor function, normal sensory function, no focal deficits noted. [] Psychologic: Affect normal, judgement normal, mood normal. [] Rectal: No andria blood noted around rectum. Current Patient Data Vital Signs Vital Signs Date Time Temp Pulse Resp B/P (MAP) Pulse Ox O2 Delivery O2 Flow Rate FiO2 05/25/19 09:18 97.6 73 22 152/76 (101) 97 Room Air 97.6 Lab Values Laboratory Tests Test 05/25/19 09:35 05/25/19 10:55 White Blood Count 11.0 x10^3/uL (4.0-11.0) Red Blood Count 4.72 x10^6/uL (3.50-5.40) Hemoglobin 13.3 g/dL (12.0-15.5) Hematocrit 40.2 % (36.0-47.0) Mean Corpuscular Volume 85 fL (79-100) Mean Corpuscular Hemoglobin 28 pg (25-35) Mean Corpuscular Hemoglobin Concent 33 g/dL (31-37) Red Cell Distribution Width 13.9 % (11.5-14.5) Platelet Count 290 x10^3/uL (140-400) Neutrophils (%) (Auto) 77 % (31-73) H Lymphocytes (%) (Auto) 16 % (24-48) L Monocytes (%) (Auto) 6 % (0-9) Eosinophils (%) (Auto) 0 % (0-3) Basophils (%) (Auto) 1 % (0-3) Neutrophils # (Auto) 8.5 x10^3/uL (1.8-7.7) H Lymphocytes # (Auto) 1.8 x10^3/uL (1.0-4.8) Monocytes # (Auto) 0.6 x10^3/uL (0.0-1.1) Eosinophils # (Auto) 0.0 x10^3/uL (0.0-0.7) Basophils # (Auto) 0.1 x10^3/uL (0.0-0.2) Sodium Level 143 mmol/L (136-145) Potassium Level 3.9 mmol/L (3.5-5.1) Chloride Level 103 mmol/L (98-107) Carbon Dioxide Level 29 mmol/L (21-32) Anion Gap 11 (6-14) Blood Urea Nitrogen 11 mg/dL (7-20) Creatinine 0.9 mg/dL (0.6-1.0) Estimated GFR (Cockcroft-Gault) 79.0 BUN/Creatinine Ratio 12 (6-20) Glucose Level 106 mg/dL (70-99) H Calcium Level 9.4 mg/dL (8.5-10.1) Magnesium Level 1.9 mg/dL (1.8-2.4) Total Bilirubin 0.4 mg/dL (0.2-1.0) Aspartate Amino Transferase (AST) 21 U/L (15-37) Alanine Aminotransferase (ALT) 24 U/L (14-59) Alkaline Phosphatase 90 U/L (46-116) Total Protein 8.5 g/dL (6.4-8.2) H Albumin 4.0 g/dL (3.4-5.0) Albumin/Globulin Ratio 0.9 (1.0-1.7) L Lipase 123 U/L (73-393) Urine Collection Type Unknown Urine Color Yellow Urine Clarity Clear Urine pH 7.0 Urine Specific Roby >=1.030 Urine Protein 30 mg/dL (NEG-TRACE) Urine Glucose (UA) Negative mg/dL (NEG) Urine Ketones (Stick) Negative mg/dL (NEG) Urine Blood Negative (NEG) Urine Nitrite Negative (NEG) Urine Bilirubin Negative (NEG) Urine Urobilinogen Dipstick 0.2 mg/dL (0.2 mg/dL) Urine Leukocyte Esterase Negative (NEG) Urine RBC Occ /HPF (0-2) Urine WBC 1-4 /HPF (0-4) Urine Squamous Epithelial Cells Mod /LPF Urine Bacteria Few /HPF (0-FEW) Urine Mucus Marked /LPF Laboratory Tests 05/25/19 09:35 Laboratory Tests 05/25/19 09:35 EKG EKG [] Radiology/Procedures Radiology/Procedures [][facility] [address] [place] [address] IMAGING REPORT Signed PATIENT: KASSIDY THOMPSONCOUNT: [id number] : 1965 LOCATION: ER AGE: 53 SEX: F EXAM STATUS: REG ER ORD. PHYSICIAN: GUNJAN MARTIN APRN REASON: LLQ abdominal pain PROCEDURE: CT ABD PELV W/ IV CONTRST ONLY EXAM: CT Abdomen and Pelvis with IV contrast INDICATION: Left lower quadrant abdominal pain with nausea vomiting and diarrhea for 3 days. TECHNIQUE: Multi-detector row CT images were acquired from the lung bases through the abdomen and pelvis with the use of IV contrast. Sagittal and coronal images were acquired from the transaxial data. All CT scans performed at this facility utilize dose optimization techniques as appropriate to the exam, including the following: Automated exposure control and adjustment of the mA and/or KV according to patient size (this includes techniques or standardized protocols for targeted exams where dose is indication/reason for exam). IV CONTRAST: Administered ORAL CONTRAST: Not administered COMPARISON: None FINDINGS: LOWER CHEST: Unremarkable LIVER: Unremarkable BILIARY SYSTEM: Gallbladder is unremarkable. Bile ducts are not dilated. PANCREAS: Unremarkable SPLEEN: Unremarkable ADRENALS: Unremarkable KIDNEYS & URETERS: Unremarkable BLADDER: Unremarkable REPRODUCTIVE ORGANS: Unremarkable GASTROINTESTINAL: There is nonspecific diffuse wall thickening in the large bowel with collapse, best appreciated at the splenic flexure. Minimal associated mesenteric hyperemia. Patient has a thick and long appendix measuring up to 9 mm in diameter but significant periappendiceal soft tissue stranding is not present to suggest acute appendicitis. It is located in the right lower quadrant abdomen coursing over the right psoas muscle and superficial to the right external iliac artery. MESENTERY/PERITONEUM/RETROPERITONEUM: Unremarkable VASCULAR: Narrowed left renal vein as it crosses between the celiac axis and the abdominal aorta. Dilated and engorged left gonadal vein with early contrast enhancement into prominent left adnexal veins. LYMPH NODES: No adenopathy OSSEOUS & SOFT TISSUES: Unremarkable IMPRESSION: 1. Findings suggesting mild uncooperative diffuse colitis. No perforation, obstruction or abscess formation. 2. 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 Electronically signed by: Hilary Mcclellan MD (05/25/2019 10:37 AM) [facility] DICTATED and SIGNED BY: HILARY MCCLELLAN MD DATE: 05/25/19 1037 Course & Med Decision Making Course & Med Decision Making Pertinent Labs and Imaging studies reviewed. (See chart for details) Will get labs, UA, and CT of abdomen. Will also give supportive care. Patient appears to have a gastroenteritis that is likely viral in nature. Labs are unremarkable. Will d/c home with August and Evy Johnsonon Disclaimer Dragon Disclaimer This electronic medical record was generated, in whole or in part, using a voice recognition dictation system. Departure Departure Impression: Primary Impression: Nausea & vomiting Additional Impression: Diarrhea in adult patient Disposition: HOME, SELF-CARE Condition: STABLE Referrals: RANJIT BOLOM MD (PCP) Patient Instructions: Viral Gastroenteritis Additional Instructions: Thank you for visiting [facility]. We appreciate you trusting us with your care. If any additional problems come up don't hesitate to return to visit us. Please follow up with your primary care provider so they can plan additional care if needed and know about the problem that you had. If symptoms worsen come back to the Emergency Department. Any concerning symptoms that start such as chest pain, shortness of air, weakness or numbness on one side of the body, running high fevers or any other concerning symptoms return to the ER. Please fill your medications at any pharmacy and follow the prescription ins tructions. Scripts Ondansetron (ONDANSETRON ODT) 4 Mg Tab.rapdis 1 TAB PO PRN Q6-8HRS PRN for NAUSEA, #20 TAB Prov: GUNJAN MARTIN APRN 05/25/19 Dicyclomine Hcl (DICYCLOMINE HCL) 10 Mg Capsule 1 CAP PO PRN Q6HRS PRN for PAIN, #20 CAP 0 Refills Prov: GUNJAN MARTIN APRN 05/25/19 Problem Qualifiers Primary Impression: Nausea & vomiting Vomiting type: unspecified Vomiting Intractability: unspecified Qualified Codes: R11.2 - Nausea with vomiting, unspecified GUNJAN MARTIN APRN May 25, 2019 09:23
[2019-05-25] MEDS ORDERED: ONDANSETRON PF 4 MG/2 ML VIAL. IV ONE (09:30)
[2019-05-25] MEDS ORDERED: IV NORMAL SALINE 1000ML BAG 1,000 ML IV ONE (09:30)
[2019-05-25] MEDS ORDERED: DICYCLOMINE HCL 10 MG CAPSULE PO ONE (09:30)
[2019-05-25 09:45] LABS: BASO # 0.1 x10^3/uL (0.0-0.2); BASO % 1 % (0-3); EOS % 0 % (0-3); HEMATOCRIT 40.2 % (36.0-47.0); HEMOGLOBIN 13.3 g/dL (12.0-15.5); LYMPH # 1.8 x10^3/uL (1.0-4.8); LYMPH % 16 % (24-48); MEAN CORPUSCULAR HEMOGLOBIN 28 pg (25-35); MEAN CORPUSCULAR HGB CONC 33 g/dL (31-37); MEAN CORPUSCULAR VOLUME 85 fL (79-100); MONO # 0.6 x10^3/uL (0.0-1.1); MONO % 6 % (0-9); NEUT # 8.5 x10^3/uL (1.8-7.7); NEUT % 77 % (31-73); PLATELET COUNT 290 x10^3/uL (140-400); RED BLOOD COUNT 4.72 x10^6/uL (3.50-5.40); RED CELL DISTRIBUTION WIDTH 13.9 % (11.5-14.5)
[2019-05-25 09:53] LABS: CALCIUM 9.4 mg/dL (8.5-10.1); CREATININE 0.9 mg/dL (0.6-1.0); POTASSIUM 3.9 mmol/L (3.5-5.1)
[2019-05-25] MEDS ORDERED: IOHEXOL 300 MG/ML 100ML VIAL. IV ONE (10:00)
[2019-05-25] MEDS ORDERED: CONTRAST GIVEN. MC PRN (10:00)
[2019-05-25 10:01] LABS: ALBUMIN/GLOBULIN RATIO 0.9 (1.0-1.7); MAGNESIUM 1.9 mg/dL (1.8-2.4); TOTAL BILIRUBIN 0.4 mg/dL (0.2-1.0); TOTAL PROTEIN 8.5 g/dL (6.4-8.2)
--- NOTE | 2019-05-25 10:40 | RAD ---
EXAM: CT Abdomen and Pelvis with IV contrast INDICATION: Left lower quadrant abdominal pain with nausea vomiting and diarrhea for 3 days. TECHNIQUE: Multi-detector row CT images were acquired from the lung bases through the abdomen and pelvis with the use of IV contrast. Sagittal and coronal images were acquired from the transaxial data. All CT scans performed at this facility utilize dose optimization techniques as appropriate to the exam, including the following: Automated exposure control and adjustment of the mA and/or KV according to patient size (this includes techniques or standardized protocols for targeted exams where dose is indication/reason for exam). IV CONTRAST: Administered ORAL CONTRAST: Not administered COMPARISON: None FINDINGS: LOWER CHEST: Unremarkable LIVER: Unremarkable BILIARY SYSTEM: Gallbladder is unremarkable. Bile ducts are not dilated. PANCREAS: Unremarkable SPLEEN: Unremarkable ADRENALS: Unremarkable KIDNEYS & URETERS: Unremarkable BLADDER: Unremarkable REPRODUCTIVE ORGANS: Unremarkable GASTROINTESTINAL: There is nonspecific diffuse wall thickening in the large bowel with collapse, best appreciated at the splenic flexure. Minimal associated mesenteric hyperemia. Patient has a thick and long appendix measuring up to 9 mm in diameter but significant periappendiceal soft tissue stranding is not present to suggest acute appendicitis. It is located in the right lower quadrant abdomen coursing over the right psoas muscle and superficial to the right external iliac artery. MESENTERY/PERITONEUM/RETROPERITONEUM: Unremarkable VASCULAR: Narrowed left renal vein as it crosses between the celiac axis and the abdominal aorta. Dilated and engorged left gonadal vein with early contrast enhancement into prominent left adnexal veins. LYMPH NODES: No adenopathy OSSEOUS & SOFT TISSUES: Unremarkable IMPRESSION: 1. Findings suggesting mild uncooperative diffuse colitis. No perforation, obstruction or abscess formation. 2. 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 Electronically signed by: Cynthia Mcclellan MD (05/25/2019 10:37 AM) [facility]
[2019-05-25 11:12] LABS: BILIRUBIN,URINE NEGATIVE (NEG); CLARITY,URINE CLEAR; COLOR,URINE YELLOW; NITRITE,URINE NEGATIVE (NEG); PROTEIN,URINE 30 mg/dL (NEG-TRACE); UROBILINOGEN,URINE 0.2 mg/dL (0.2 mg/dL)
[2019-05-25 11:15] VITALS: BP 183/91
[2019-05-25 11:22] LABS: SQUAMOUS EPITHELIAL CELL,UR MOD /LPF
[2019-05-25 11:23] LABS: BACTERIA,URINE FEW /HPF (0-FEW)
[2019-05-25 11:24] LABS: RBC,URINE OCC /HPF (0-2)
[2019-05-25] MEDS ORDERED: ONDA4TAB12 PO (11:27)
[2019-05-25] MEDS ORDERED: DICY10CA3 PO (11:27)
== END 2019-05-25 11:33 | disposition home or self-care (01) ==
LOC: ER 08:50
DX: R11.2 Nausea with vomiting, unspecified (principal); R19.7 Diarrhea, unspecified; R10.32 Left lower quadrant pain; R19.5 Other fecal abnormalities; K21.9 Gastro-esophageal reflux disease without esophagitis; I10 Essential (primary) hypertension; Z98.51 Tubal ligation status; Z98.890 Other specified postprocedural states; Z88.5 Allergy status to narcotic agent
CPT/HCPCS: 36415; 74177; 80053; 81001; 83690; 83735; 85025; 96361; 96374; 99285; J2405; J7030; Q9967

== ENCOUNTER → 2019-08-19 | Outpatient (CLI) | payer OTHER ==
[~2019-08-19] MED LIST changes: +DICY10CA3 PO; +ONDA4TAB12 PO
[2019-08-19 09:34] LABS: ALBUMIN 3.8 g/dL (3.4-5.0); ALBUMIN/GLOBULIN RATIO 0.9 (1.0-1.7); CALCIUM 8.7 mg/dL (8.5-10.1); CREATININE 0.7 mg/dL (0.6-1.0); GFR 105.5; POTASSIUM 3.8 mmol/L (3.5-5.1); TOTAL BILIRUBIN 0.4 mg/dL (0.2-1.0); TOTAL PROTEIN 8.1 g/dL (6.4-8.2)
[2019-08-20 00:11] LABS: HEMOGLOBIN A1C 5.9 % (4.8-5.6)
== END | disposition home or self-care (01) ==
LOC: LAB 08:49
PROVIDERS: ATTEND Family Medicine
DX: E74.39 Other disorders of intestinal carbohydrate absorption (principal); E55.9 Vitamin D deficiency, unspecified
CPT/HCPCS: 36415; 80053; 82306; 83036

== ENCOUNTER → 2019-12-31 | Outpatient (CLI) | payer OTHER | END | disposition home or self-care (01) | LOC: LAB 08:54 | PROVIDERS: ATTEND Internal Medicine Pulmonary Disease | DX: Z20.828 Contact with and (suspected) exposure to other viral communicable diseases (principal) | CPT/HCPCS: 87426 ==

== ENCOUNTER → 2020-01-14 | Outpatient (CLI) | payer OTHER | LOC: LAB 10:49 | PROVIDERS: ATTEND Internal Medicine Pulmonary Disease | DX: Z20.828 Contact with and (suspected) exposure to other viral communicable diseases (principal) | CPT/HCPCS: 87426 ==

== ENCOUNTER → 2020-02-04 | Outpatient (CLI) | payer OTHER | LOC: LAB 08:45 | PROVIDERS: ATTEND Internal Medicine Pulmonary Disease | DX: Z20.828 Contact with and (suspected) exposure to other viral communicable diseases (principal) | CPT/HCPCS: 87426 ==

== ENCOUNTER → 2020-02-11 | Outpatient (CLI) | payer OTHER ==
[2020-02-11 15:55] LABS: ALBUMIN 3.8 g/dL (3.4-5.0); ALBUMIN/GLOBULIN RATIO 0.9 (1.0-1.7); CALCIUM 9.1 mg/dL (8.5-10.1); CREATININE 0.9 mg/dL (0.6-1.0); GFR 78.7; POTASSIUM 3.8 mmol/L (3.5-5.1); TOTAL BILIRUBIN 0.4 mg/dL (0.2-1.0); TOTAL PROTEIN 8.1 g/dL (6.4-8.2)
== END ==
LOC: LAB 14:20
PROVIDERS: ATTEND Internal Medicine Gastroenterology
DX: B19.10 Unspecified viral hepatitis B without hepatic coma (principal)
CPT/HCPCS: 80053; 87517

== ENCOUNTER → 2020-02-18 | Outpatient (CLI) | payer OTHER | LOC: LAB 08:23 | PROVIDERS: ATTEND Internal Medicine Pulmonary Disease | DX: Z20.828 Contact with and (suspected) exposure to other viral communicable diseases (principal) | CPT/HCPCS: 87426 ==

== ENCOUNTER → 2020-02-25 | Outpatient (CLI) | payer OTHER | LOC: LAB 10:24 | PROVIDERS: ATTEND Internal Medicine Pulmonary Disease | DX: Z20.828 Contact with and (suspected) exposure to other viral communicable diseases (principal) | CPT/HCPCS: 87426 ==

== ENCOUNTER → 2020-04-21 | Outpatient (CLI) | payer OTHER ==
[~2020-04-21] MED LIST changes: -OMEP40CA45 PO; +OMEP40CA7 PO
== END ==
LOC: LAB 12:38
PROVIDERS: ATTEND Internal Medicine Pulmonary Disease
DX: Z20.828 Contact with and (suspected) exposure to other viral communicable diseases (principal)
CPT/HCPCS: 87426

== ENCOUNTER → 2020-04-23 | Outpatient (CLI) | payer OTHER ==
[~2020-04-23] MED LIST changes: +OMEP40CA45 PO; -OMEP40CA7 PO
== END ==
LOC: LAB 09:09
PROVIDERS: ATTEND Internal Medicine Pulmonary Disease
DX: Z20.828 Contact with and (suspected) exposure to other viral communicable diseases (principal)
CPT/HCPCS: 87426

== ENCOUNTER → 2020-07-07 | Outpatient (CLI) | payer OTHER | LOC: LAB 09:42 | PROVIDERS: ATTEND Internal Medicine Pulmonary Disease | DX: Z20.822 Contact with and (suspected) exposure to COVID-19 (principal) | CPT/HCPCS: 87426 ==

== ENCOUNTER → 2020-07-29 | Outpatient (CLI) | payer OTHER ==
[2020-07-29 15:41] LABS: HEMATOCRIT 38.1 % (36.0-47.0); HEMOGLOBIN 12.6 g/dL (12.0-15.5); RED BLOOD COUNT 4.45 x10^6/uL (3.50-5.40); RED CELL DISTRIBUTION WIDTH 13.4 % (11.5-14.5); WHITE BLOOD COUNT 14.3 x10^3/uL (4.0-11.0)
[2020-07-29 16:02] LABS: ALBUMIN 3.6 g/dL (3.4-5.0); ALBUMIN/GLOBULIN RATIO 0.7 (1.0-1.7); CALCIUM 9.1 mg/dL (8.5-10.1); CREATININE 0.9 mg/dL (0.6-1.0); GFR 78.7; POTASSIUM 3.9 mmol/L (3.5-5.1); TOTAL BILIRUBIN 0.3 mg/dL (0.2-1.0); TOTAL PROTEIN 8.5 g/dL (6.4-8.2)
[2020-07-30 01:09] LABS: HEMOGLOBIN A1C 5.9 % (4.8-5.6)
== END ==
LOC: LAB 15:02
PROVIDERS: ATTEND Family Medicine
DX: E74.39 Other disorders of intestinal carbohydrate absorption (principal); E55.9 Vitamin D deficiency, unspecified
CPT/HCPCS: 36415; 80053; 82306; 83036; 85027

== ENCOUNTER → 2020-07-31 | Outpatient (CLI) | payer OTHER ==
--- NOTE | 2020-07-31 14:48 | KCIC ---
Bilateral digital screening mammograms with 3-D tomosynthesis: Reason for examination: Routine screening. Comparison is made to previous studies dated back to 06/30/2015. Bilateral mammograms in CC and oblique projections were obtained with 2-D imaging and 3-D tomosynthes is imaging on a Siemens Inspiration unit and reviewed on the workstation. Interpretation was made wit h the benefit of CAD. The skin and nipples show no abnormalities. No abnormal axillary lymph nodes are seen. The breast par enchyma is extremely dense. (Breast density: Category D.) There are no dominant masses, suspicious ca lcifications or architectural distortion. A few benign-appearing calcifications are seen in the right breast. Impression: No evidence of malignancy. Recommend routine screening. Your patient's mammogram demonstrates that she has dense breast tissue (breast density category C or D), which could hide abnormalities, and if she has other risk factors for breast cancer that have bee n identified, she might benefit from supplemental screening tests that may be suggested by you as her ordering physician. Dense breast tissue, in and of itself, is a relatively common condition. Therefo re, this information is not provided to cause undue concern, but rather to raise your awareness and t o promote discussion with your patient regarding the presence of other risk factors, in addition to d ense breast tissue. Your patient's mammography results will be sent to her. BI-RAD Category 2: Benign. "Our facility is accredited by the [employer] Mammography Program." This patient's information has been entered into a reminder system for the patient to be notified wit h the results of her examination and a target date for the next mammogram. Electronically signed by: Emily Shields MD (07/31/2020 2:45 PM) [facility]
== END ==
LOC: KCIC MAMMO 14:04
PROVIDERS: ATTEND Family Medicine
DX: Z12.31 Encounter for screening mammogram for malignant neoplasm of breast (principal)
CPT/HCPCS: 77063; 77067

== ENCOUNTER 2020-08-07 18:48 | Emergency (ER) | payer OTHER ==
[~2020-08-07] VITALS: Ht 170.2 cm; Wt 95.0 kg
[2020-08-07 19:10] VITALS: BP 156/70
--- NOTE | 2020-08-07 20:09 | RAD ---
Right hand 3 views. HISTORY: Pain distal third metacarpal 3 views were taken of the right hand. There is not evidence of an acute fracture or osseous abnormali ty. IMPRESSION: 1. Negative right hand. Electronically signed by: Dilip Boudreaux MD (08/07/2020 8:06 PM) [facility]
--- NOTE | 2020-08-07 20:39 | ED.ADGEN ---
Past Medical History Past Medical History: GERD, Hypertension Past Surgical History: Tubal ligation, Other Additional Past Surgical Histo: (R) SHOULDER ROTA CUFF, L foot surgery Smoking Status: Never Smoker Alcohol Use: Occasionally Drug Use: None General Adult EDM: Chief Complaint: HAND PROBLEM HPI: HPI: Patient is a 54 year old AA female who presents emergency department with complaints of pain to the dorsal aspect of her right hand at her third and fourth knuckles for the last week and a half. She denied any known injury or trauma to the hand. Patient states she did notice some discoloration over the third knuckle, she denied any numbness, tingling, or weakness. She denies any limited range of motion. She currently rates her pain a 5 out of 10 on the pain scale, she denies any alleviating factors, the pain is worst with making a fist. Review of Systems: Review of Systems: Complete ROS is negative unless otherwise noted in HPI. Allergies: Allergies: Allergies Coded Allergies Type Severity Reaction Last Updated Verified codeine Adverse Reaction Intermediate Nausea 01/05/18 Yes Physical Exam: PE: See Above Constitutional: Well developed, well nourished, no acute distress, non-toxic appearance. [] HENT: Normocephalic, atraumatic, bilateral external ears normal, nose normal. [] Eyes: PERRLA, EOMI, conjunctiva normal, no discharge. [] Neck: Normal range of motion, no stridor. [] Cardiovascular:Heart rate regular rhythm Lungs & Thorax: Respirations even and unlabored, no retractions, no respiratory distress Skin: Warm, dry, no erythema, no rash. [] Extremities: Right hand: No obvious deformity, no crepitus, tenderness to palpation over the third and fourth knuckles, no cyanosis, ROM intact, 1+ edema with some bruising to the third knuckle otherwise no edema appreciated Neurologic: Alert and oriented X 3, normal motor, normal sensory, no focal deficits noted. [] Psychologic: Affect normal, judgement normal, mood normal. [] Current Patient Data: Vital Signs: Vital Signs Date Time Temp Pulse Resp B/P (MAP) Pulse Ox O2 Delivery O2 Flow Rate FiO2 08/07/20 19:10 98.5 65 16 156/70 (98) 97 98.5 EKG: EKG: [] Heart Score: C/O Chest Pain: No Risk Scores: Score 0 - 3: 2.5% MACE over next 6 weeks - Discharge Home Score 4 - 6: 20.3% MACE over next 6 weeks - Admit for Clinical Observation Score 7 - 10: 72.7% MACE over next 6 weeks - Early Invasive Strategies Radiology/Procedures: Radiology/Procedures: PROCEDURE: HAND RIGHT 3V Right hand 3 views. HISTORY: Pain distal third metacarpal 3 views were taken of the right hand. There is not evidence of an acute fracture or osseous abnormality. IMPRESSION: 1. Negative right hand. [] Course & Med Decision Making: Course & Med Decision Making Pertinent Labs and Imaging studies reviewed. (See chart for details) 54-year-old female presents emergency department with concerns of pain in her right hand for the last 1-1/2 weeks. X-ray did not reveal any acute findings. An Guero wrap was applied to the patient's hand by myself for comfort. Encourage patient to take Tylenol or ibuprofen as needed for pain. I instructed her to follow-up with her primary care doctor next week if symptoms persist. I instructed her to return to the ER if symptoms worsened or fever develop. I o ffered to write a work excuse for the patient however she declined a work note stated that she must go to work. Patient verbalized an understanding of home care, medications, follow-up, and return to ED instructions and was in agreement with the plan of care. [] The patient was seen and interviewed as well as examined at the bedside. The chart was reviewed. The case was discussed. Agree with the plan of care. Dragon Disclaimer: Draghannah Disclaimer: This electronic medical record was generated, in whole or in part, using a voice recognition dictation system. Departure Departure Impression: Primary Impression: Pain in right hand Additional Impression: Contusion of right hand, initial encounter Disposition: 06 HOME HEALTH CARE SERVICE Condition: STABLE Referrals: RANJIT BLOOM MD (PCP) Patient Instructions: Hand Contusion, [id number] Additional Instructions: You can take Tylenol or ibuprofen as needed for pain. Recommend application of ice, elevation, and rest of affected extremity. Wear the Guero wrap that was placed as needed for comfort. Follow-up with your primary care doctor next week if symptoms persist, return to the ER symptoms worsen or fever develops. Splinting Splinting : Location: Right hand Pre-Made Type: velcro (Guero wrap) Pre-Proc Neuro Vasc Exam: normal Post-Proc Neuro Vasc Exam: normal, unchanged from pre-exam Progress An Guero wrap was applied to the patient's right hand for comfort by myself, no complications Problem Qualifiers MARIYA ESCOBAR APRN Aug 07, 2020 20:38 KELLEY ROCHE DO Aug 08, 2020 04:48
== END 2020-08-07 20:49 | disposition home health service (06) ==
LOC: ER 18:48
DX: S60.221A Contusion of right hand, initial encounter (principal); R60.0 Localized edema; M79.641 Pain in right hand; K21.9 Gastro-esophageal reflux disease without esophagitis; I10 Essential (primary) hypertension; Z98.51 Tubal ligation status; Z98.890 Other specified postprocedural states; Z88.5 Allergy status to narcotic agent; X58.XXXA Exposure to other specified factors, initial encounter; Y93.89 Activity, other specified; Y92.89 Other specified places as the place of occurrence of the external cause; Y99.8 Other external cause status
CPT/HCPCS: 73130; 99283

== ENCOUNTER → 2021-05-26 | Outpatient (CLI) | payer OTHER ==
[~2021-05-26] MED LIST changes: -OMEP40CA45 PO; +OMEP40CA7 PO
[2021-05-26 11:05] LABS: BASO # 0.1 x10^3/uL (0.0-0.2); BASO % 1 % (0-3); EOS # 0.1 x10^3/uL (0.0-0.7); EOS % 1 % (0-3); HEMATOCRIT 40.7 % (36.0-47.0); HEMOGLOBIN 13.2 g/dL (12.0-15.5); LYMPH # 3.1 x10^3/uL (1.0-4.8); LYMPH % 43 % (24-48); MEAN CORPUSCULAR HEMOGLOBIN 28 pg (25-35); MEAN CORPUSCULAR HGB CONC 32 g/dL (31-37); MEAN CORPUSCULAR VOLUME 86 fL (79-100); MONO # 0.6 x10^3/uL (0.0-1.1); MONO % 8 % (0-9); NEUT # 3.4 x10^3/uL (1.8-7.7); NEUT % 47 % (31-73); PLATELET COUNT 286 x10^3/uL (140-400); RED BLOOD COUNT 4.76 x10^6/uL (3.50-5.40); RED CELL DISTRIBUTION WIDTH 13.8 % (11.5-14.5); WHITE BLOOD COUNT 7.3 x10^3/uL (4.0-11.0)
[2021-05-26 11:24] LABS: ALBUMIN 3.8 g/dL (3.4-5.0); ALBUMIN/GLOBULIN RATIO 0.8 (1.0-1.7); CALCIUM 8.6 mg/dL (8.5-10.1); CREATININE 0.7 mg/dL (0.6-1.0); GFR 104.7; POTASSIUM 3.9 mmol/L (3.5-5.1); TOTAL BILIRUBIN 0.4 mg/dL (0.2-1.0); TOTAL PROTEIN 8.4 g/dL (6.4-8.2)
--- NOTE | 2021-05-26 13:05 | RAD ---
EXAM: Cervical spine MRI without contrast. HISTORY: Radiculopathy. TECHNIQUE: Multiplanar, multisequence magnetic resonance imaging of the cervical spine was performed without contrast. COMPARISON: 07/21/2011 FINDINGS: There is mild cervical kyphosis. There is minimal anterolisthesis of C4 on C5. There is deg enerative endplate remodeling and osteophytosis primarily at the mid and lower cervical levels. There is no fracture or suspicious osseous lesion. The skull base and posterior fossa are unremarkable. Th ere is deformation of the spinal cord at the lower cervical levels, described in detail below. There is no spinal cord lesion. At C2-C3, there is left posterior lateral predominant endplate remodeling. There is no stenosis. At C3-C4, there is left posterior lateral predominant endplate remodeling. There is mild left facet a rthropathy. There is no stenosis. At C4-C5, there is disc bulge and endplate remodeling. There is no stenosis. At C5-C6, there is a left posterior lateral predominant disc bulge and endplate remodeling. There is deformation of the ventral aspect of the spinal cord and mild central canal stenosis measuring 7.7 mm in anterior posterior dimension. At C6-C7, there is a disc bulge and endplate remodeling. There is flattening of the ventral surface o f the spinal cord and mild central canal stenosis measuring 7.7 mm in anterior posterior dimension. At C7-T1 and T1-T2, there is no stenosis. At T1-T2, there is a right posterior lateral disc osteophyte complex superimposed on a disc bulge and endplate remodeling. There is mild bilateral facet arthropathy. There is mild right foraminal stenos is. IMPRESSION: 1. Multilevel degenerative change involving the cervical spine, described in detail above. This resul ts in stenosis as before mentioned levels. These findings are slightly increased at C5-C6 and C6-C7 c ompared to the prior study. There is mild associated central canal stenosis at these levels. Electronically signed by: Verna Fiore MD (05/26/2021 1:03 PM) [id number]
[2021-05-27 02:09] LABS: HEMOGLOBIN A1C 5.9 % (4.8-5.6)
== END ==
LOC: MRI 10:58
PROVIDERS: ATTEND Family Medicine
DX: E74.39 Other disorders of intestinal carbohydrate absorption (principal); E55.9 Vitamin D deficiency, unspecified; M47.812 Spondylosis without myelopathy or radiculopathy, cervical region; M51.24 Other intervertebral disc displacement, thoracic region; M48.8X2 Other specified spondylopathies, cervical region; M50.321 Other cervical disc degeneration at C4-C5 level; M48.04 Spinal stenosis, thoracic region; M25.78 Osteophyte, vertebrae
CPT/HCPCS: 36415; 72141; 80053; 82306; 83036; 85025

== ENCOUNTER → 2021-06-11 | Outpatient (CLI) | payer OTHER ==
--- NOTE | 2021-06-11 13:13 | RAD ---
Examination: MRI of the left shoulder without contrast HISTORY: History of left shoulder pain. COMPARISON: None available TECHNIQUE: Multiplanar, multisequence MR imaging of the left shoulder without contrast FINDINGS: The long head of the biceps tendon within the bicipital groove. The attachment of the long head the biceps tendon to the superior labral anchor grossly appears intact. Moderate increased T2 signal iden tified in the long head of the biceps tendon with the thickened appearance of the lung. The biceps te ndon likely moderate tendinosis. The attachment of the subscapularis tendon, supraspinatus tendon wesley ssly appears intact. Moderate increased T2 signal identified in the supraspinatus tendon likely tendi nosis. Mild increased signal identified in the labrum likely degenerative changes. Subchondral cystic change s identified in the glenoid likely degenerative changes. Moderate joint space loss identified in the joint, acromioclavicular joint likely degenerative changes. Mild superficial fraying of cartilage ozzie ntified in the glenohumeral joint. Acromion is type II. The muscle bulk grossly appears unremarkable. Fat is identified in the rotator interval. IMPRESSION: 1. Moderate tendinosis of the long head of the biceps tendon. 2. Moderate tendinosis of the supraspinatus tendon. 3. Moderate degenerative changes glenohumeral joint, acromioclavicular joint. Electronically signed by: Nhan Hidalgo MD (06/11/2021 12:53 PM) [id number]
== END ==
LOC: MRI 11:01
PROVIDERS: ATTEND Orthopaedic Surgery Sports Medicine
DX: M19.012 Primary osteoarthritis, left shoulder (principal); M25.812 Other specified joint disorders, left shoulder
CPT/HCPCS: 73221

== ENCOUNTER → 2021-07-27 | Outpatient (CLI) | payer OTHER ==
[~2021-07-27] MED LIST changes: +BUPIVACAINE MPF 0.5% 10 ML VIAL. IJ ONE; +IOHEXOL 300 MG/ML 50 ML VIAL. INT ART ONE; +LIDOCAINE 1% Multi-Dose 20 ML VIAL. INJ ONE; +TRIAMCINOLONE PRES.FREE 40 MG/ML VIAL. INT ART ONE
--- NOTE | 2021-07-27 16:10 | RAD ---
EXAM: Left shoulder injection WITH Fluoroscopic guidance CLINICAL HISTORY: Left shoulder pain COMPARISON: MRI 06/11/2021 TECHNIQUE: The patient was informed of the indications and alternatives for this procedure as well as risks and benefits. No immediate contraindication identified. The patient provided informed, written consent. Laterality was confirmed by the entire team following a time out. Following initial flouroscopic localization, a suitable area was sterilely prepped and draped. Local anesthesia was administered with 1% lidocaine. With fluoroscopic observation, a 22 gauge spinal needl e was advanced into the Left shoulder joint with confirmation of intra-articular position with infusi on of a few cc of iodinated contrast. Subsequent infusion 2 mL 0.5 percent bupivacaine and 1 mL Kenal og 40. Hemostasis with local pressure. Local clinical exam negative for immediate complication. Patient informed re local potential signs or symptoms that may indicate need to return to ER/Ordering physician for further evaluation. Patient informed re precautionary measures after intra-synovial in jection of anesthetic. Total Fluoroscopy time: 0.1 minutes Total spot images taken: 1 IMPRESSION: Successful intra-articular steroid injection of the Left shoulder per clinical request. Electronically signed by: Tereso Baltazar MD (07/27/2021 4:07 PM) [id number]
== END | disposition home or self-care (01) ==
LOC: RAD 14:00
PROVIDERS: ATTEND Orthopaedic Surgery Sports Medicine
DX: M25.512 Pain in left shoulder (principal); I10 Essential (primary) hypertension; K21.9 Gastro-esophageal reflux disease without esophagitis; M19.90 Unspecified osteoarthritis, unspecified site; F41.9 Anxiety disorder, unspecified; F32.9 Major depressive disorder, single episode, unspecified; Z79.82 Long term (current) use of aspirin; Z79.899 Other long term (current) drug therapy; Z98.890 Other specified postprocedural states; Z88.5 Allergy status to narcotic agent
CPT/HCPCS: 20610; 77002; J3301; J3490; Q9967

== ENCOUNTER 2021-08-02 16:39 | Emergency (ER) | payer OTHER ==
[~2021-08-02] VITALS: Ht 165.1 cm; Wt 92.7 kg
[~2021-08-02 16:39] MED LIST changes: -BUPIVACAINE MPF 0.5% 10 ML VIAL. IJ ONE; -IOHEXOL 300 MG/ML 50 ML VIAL. INT ART ONE; -LIDOCAINE 1% Multi-Dose 20 ML VIAL. INJ ONE; -TRIAMCINOLONE PRES.FREE 40 MG/ML VIAL. INT ART ONE
--- NOTE | 2021-08-02 18:26 | RAD ---
INDICATION: Reason: lethargy / Spl. Instructions: / History: COMPARISON: February 2006 TECHNIQUE: Axial CT images obtained through the head without intravenous contrast. One or more of the following individualized dose reduction techniques were utilized for this examinat ion: 1. Automated exposure control; 2. Adjustment of the mA and/or kV according to patient size; 3 . Use of iterative reconstruction technique. FINDINGS: No intracranial hemorrhage. No significant midline shift. Ventricles are mildly prominent No acute osseous abnormality. IMPRESSION: * No acute intracranial hemorrhage. * Diffuse prominence of the ventricles is again seen and could be from volume loss with superimposed mild hydrocephalus such as normal pressure hydrocephalus not excluded. * Scattered foci of low-density in the white matter. Nonspecific but can be from small vessel ischem ic changes. This is a common finding. Electronically signed by: Mike Mooney MD (08/02/2021 6:24 PM) [id number]
--- NOTE | 2021-08-02 18:46 | RAD ---
XR CHEST 1V History: Reason: lethargy / Spl. Instructions: / History: Comparison: None. Findings: No consolidation or pleural effusion. Normal heart size. No pneumothorax. Impression: 1. No acute cardiopulmonary process. Electronically signed by: Edison Berrios DO (08/02/2021 6:44 PM) [facility]
--- NOTE | 2021-08-02 19:13 | PHYS DOC ---
Past Medical History Past Medical History: GERD, Hypertension Past Surgical History: No Surgical History Additional Past Surgical Histo: (R) SHOULDER ROTA CUFF, L foot surgery Smoking Status: Never Smoker Alcohol Use: Occasionally Drug Use: None General Adult EDM: Chief Complaint: OTHER COMPLAINTS HPI: HPI: Patient is a 55 year old female with a history of hypertension, acid reflux, presenting to the ED today with multiple complaints. Patient states she got a steroid injection to her left shoulder on July 27, 2021, she states since that day she has had generalized weakness, jittery feeling and she is short of air. Denies any chest pain. She states she has had previous cortisone shots to the same shoulder with no issues. She states her shoulder pain improved with the steroid injection. Review of Systems: Review of Systems: Constitutional: Reports generalized weakness, jittering feeling. Denies fever or chills. [] Eyes: Denies change in visual acuity. [] HENT: Denies nasal congestion or sore throat. [] Respiratory: Reports SOA. Denies cough Cardiovascular: Denies chest pain or edema. [] GI: Denies abdominal pain, nausea, vomiting, bloody stools or diarrhea. [] : Denies dysuria. [] Musculoskeletal: Denies back pain or joint pain. [] Integument: Denies rash. [] Neurologic: Denies headache, focal weakness or sensory changes. [] Psychiatric: Denies depression or anxiety. [] Heart Score: C/O Chest Pain: N/A Risk Factors: Risk Factors: DM, Current or recent (<one month) smoker, HTN, HLP, family history of CAD, obesity. Risk Scores: Score 0 - 3: 2.5% MACE over next 6 weeks - Discharge Home Score 4 - 6: 20.3% MACE over next 6 weeks - Admit for Clinical Observation Score 7 - 10: 72.7% MACE over next 6 weeks - Early Invasive Strategies Allergies: Allergies: Allergies Coded Allergies Type Severity Reaction Last Updated Verified codeine Adverse Reaction Intermediate Nausea 01/05/18 Yes Physical Exam: PE: Constitutional: Well developed, well nourished, no acute distress, non-toxic appearance. [] HENT: Normocephalic, atraumatic, bilateral external ears normal, oropharynx moist, no oral exudates, nose normal. [] Eyes: PERRLA, EOMI, conjunctiva normal, no discharge. [] Neck: Normal range of motion, no tenderness, supple, no stridor. [] Cardiovascular:Heart rate regular rhythm, no murmur [] Lungs & Thorax: Bilateral breath sounds clear to auscultation [] Abdomen: Bowel sounds normal, soft, no tenderness, no masses, no pulsatile masses. [] Skin: Warm, dry, no erythema, no rash. [] Back: No tenderness, no CVA tenderness. [] Extremities: No tenderness, no cyanosis, no clubbing, ROM intact, no edema. [] Neurologic: Alert and oriented X 3, normal motor function, normal sensory function, no focal deficits noted. [] Psychologic: Affect normal, judgement normal, mood normal. [] Current Patient Data: Vital Signs: Vital Signs Date Time Temp Pulse Resp B/P (MAP) Pulse Ox O2 Delivery O2 Flow Rate FiO2 08/02/21 16:45 98.4 79 18 131/82 (98) 97 Room Air 98.4 EKG: EKG: [] Radiology/Procedures: Radiology/Procedures: []PROCEDURE: CT HEAD WO CONTRAST INDICATION: Reason: lethargy / Spl. Instructions: / History: COMPARISON: February 2006 TECHNIQUE: Axial CT images obtained through the head without intravenous contrast. One or more of the following individualized dose reduction techniques were utilized for this examination: 1. Automated exposure control; 2. Adjustment of the mA and/or kV according to patient size; 3. Use of iterative reconstruction technique. FINDINGS: No intracranial hemorrhage. No significant midline shift. Ventricles are mildly prominent No acute osseous abnormality. IMPRESSION: * No acute intracranial hemorrhage. * Diffuse prominence of the ventricles is again seen and could be from volume loss with superimposed mild hydrocephalus such as normal pressure hydrocephalus not excluded. * Scattered foci of low-density in the white matter. Nonspecific but can be from small vessel ischemic changes. This is a common finding. Electronically signed by: Isael Walker MD (08/02/2021 6:24 PM) [id number] DICTATED and SIGNED BY: ISAEL AWLKER MD DATE: 08/02/211817 PROCEDURE: PORTABLE CHEST 1V XR CHEST 1V History: Reason: lethargy / Spl. Instructions: / History: Comparison: None. Findings: No consolidation or pleural effusion. Normal heart size. No pneumothorax. Impression: 1. No acute cardiopulmonary process. Electronically signed by: Edison Berrios DO (08/02/2021 6:44 PM) [facility] DICTATED and SIGNED BY: EDISON BERRIOS DO DATE: 08/02/211842 Course & Med Decision Making: Course & Med Decision Making Pertinent Labs and Imaging studies reviewed. (See chart for details) This a 55-year-old female patient presenting to the ED today with multiple complaints. Patient states she received a steroid injection to her left shoulder on July 27, 2021 and since then she has had generalized weakness, jittery feeling and shortness of breath. CT of the head is negative, chest x-ray is negative CBC with a WBC of 16.2-from steroid shot, CMP with no acute findings, UA negative for infection, EKG is negative. High-sensitivity troponin is normal. On reevaluation patient is sitting up on the bed, alert oriented, has no complaints. She states she is feeling better. Discharge to home, follow-up with PCP in the course of this week Dereck Disclaimer: Dereck Disclaimer: This electronic medical record was generated, in whole or in part, using a voice recognition dictation system. Departure Departure Impression: Primary Impression: Generalized weakness Disposition: 01 HOME / SELF CARE / HOMELESS Condition: STABLE Referrals: RANJIT BLOOM MD (PCP) Follow-up in the course of this week Patient Instructions: Weakness, [id number] Additional Instructions: You were evaluated in the emergency room, your CT of the head, chest x-ray, cardiac work-up-is negative. Please call your primary care doctor and set up a follow-up appointment of this week. CRISTI PATEL INVESTIGATOR [employer] Aug 02, 2021 19:13
[2021-08-02 19:47] LABS: BASO # 0.3 x10^3/uL (0.0-0.2); BASO % 2 % (0-3); EOS # 0.1 x10^3/uL (0.0-0.7); EOS % 0 % (0-3); HEMATOCRIT 36.8 % (36.0-47.0); HEMOGLOBIN 12.2 g/dL (12.0-15.5); LYMPH # 5.6 x10^3/uL (1.0-4.8); LYMPH % 34 % (24-48); MEAN CORPUSCULAR HEMOGLOBIN 29 pg (25-35); MEAN CORPUSCULAR HGB CONC 33 g/dL (31-37); MEAN CORPUSCULAR VOLUME 86 fL (79-100); MONO # 0.9 x10^3/uL (0.0-1.1); MONO % 5 % (0-9); NEUT # 9.4 x10^3/uL (1.8-7.7); NEUT % 58 % (31-73); PLATELET COUNT 293 x10^3/uL (140-400); RED BLOOD COUNT 4.29 x10^6/uL (3.50-5.40); RED CELL DISTRIBUTION WIDTH 14.4 % (11.5-14.5); WHITE BLOOD COUNT 16.2 x10^3/uL (4.0-11.0)
--- NOTE | 2021-08-02 19:52 | EKG ---
[facility] [address] [place] [address] Test Date: 2021-08-02 Test Time: 19:44:27 Pat Name: KASSIDY THOMPSON Department: Room: Gender: F [employer]: : 1965 Requested By: CRISTI PATEL Order Number: [id number] Reading MD: Cheng Marcos Measurements Intervals [place] Rate: 79 P: 57 [place]: 188 QRS: 29 QRSD: 80 T: 41 QT: 390 QTc: 448 Interpretive Statements SINUS RHYTHM Electronically Signed On 08-04-2021 18:16:54 CDT by Cheng Marcos
[2021-08-02 19:55] LABS: BACTERIA,URINE 0 /HPF (0-FEW); RBC,URINE 0 /HPF (0-2); WBC,URINE RARE /HPF (0-4)
[2021-08-02 19:57] LABS: BARBITURATES NEG (NEG); BENZODIAZEPINES NEG (NEG); CANNABINOIDS NEG (NEG); COCAINE NEG (NEG); METHADONE NEG (NEG); OPIATES NEG (NEG); PHENCYCLIDINE NEG (NEG)
[2021-08-02 20:03] LABS: AMPHETAMINE/METHAMPHETAMINE NEG (NEG); CALCIUM 9.5 mg/dL (8.5-10.1); CREATININE 0.8 mg/dL (0.6-1.0); GFR 89.8; POTASSIUM 4.5 mmol/L (3.5-5.1)
[2021-08-02 20:10] LABS: ALBUMIN 4.2 g/dL (3.4-5.0); ALBUMIN/GLOBULIN RATIO 0.9 (1.0-1.7); MAGNESIUM 2.3 mg/dL (1.8-2.4); TOTAL BILIRUBIN 0.5 mg/dL (0.2-1.0); TOTAL PROTEIN 9.1 g/dL (6.4-8.2)
[2021-08-02 20:14] LABS: INFLUENZA A PATIENT NEGATIVE (NEGATIVE); INFLUENZA B PATIENT NEGATIVE (NEGATIVE)
[2021-08-02 21:43] VITALS: BP 138/68
== END 2021-08-02 21:44 | disposition home or self-care (01) ==
LOC: ER 16:39
DX: R53.1 Weakness (principal); K21.9 Gastro-esophageal reflux disease without esophagitis; Z20.822 Contact with and (suspected) exposure to COVID-19; I10 Essential (primary) hypertension; Z88.5 Allergy status to narcotic agent
CPT/HCPCS: 36415; 70450; 71045; 80053; 80307; 81001; 83735; 83880; 84443; 84484; 85025; 85379; 87428; 93005; 99285; C9803; U0003